=== PATIENT | male | born 1945 | race Caucasian/White ===

== ENCOUNTER 2023-09-22 13:26 | Emergency (ER) | payer BC, SELFPAY ==
[2023-09-22 13:34] VITALS: BP 231/97; PULSE 85; RESP 18; TEMP 36.8; O2SAT 98
--- NOTE | 2023-09-22 13:45 | DI.RAD_ITS ---
Exam(s) XR SHOULDER LT COMPLETE 2+V EXAM: XR SHOULDER LT COMPLETE 2+V CLINICAL HISTORY: left shoulder trauma. TECHNIQUE: 2D digital imaging was performed. Three views. COMPARISON: No exams were available for comparison FINDINGS: There is a fracture through the surgical neck of the humerus with some impaction and mild displacemen t. There is additional nondisplaced fracture through the greater tuberosity. The fracture may be valladares bacute. There are underlying degenerative changes of the glenohumeral joint. Multiple subchondral c ysts is well as sclerosis on both sides of the joint. The AC joint is unremarkable. IMPRESSION: Fracture of the humeral head which appears subacute. Clinical correlation recommended. Underlying s evere degenerative changes. DATA REPOSITORY: RADIATION DOSE DELIVERED:
--- NOTE | 2023-09-22 13:48 | ED.GENADUL_ITS ---
Discharge Plan Disposition Patient Disposition: Home Discharge Details Clinical Impression: Fracture of head of left humerus Primary Care Provider: Unknown,Unknown ED Provider: Anson Morales Home Meds and New Rx's Prescriptions: New oxycodone 5 mg tablet 5 mg PO Q6H PRNQty: 9 0RF No Action losartan 50 mg tablet 50 mg PO DAILY atorvastatin 40 mg tablet 40 mg PO DAILY Discharge Instructions Instructions: Proximal Humerus Fracture (ED) Additional Instructions: You were seen in the emergency department after a fall. We performed an x-ray of your left shoulder that shows a fracture to the left humeral head. We gave you some medications for pain. We put you in a sling. Take 1000 g of Tylenol every 6 hours for pain. Take 600 mg of ibuprofen every 6 hours for pain. I Have given you a prescription for oxycodone that you can take for breakthrough pain as prescribed. Use the sling is much as possible to help with pain take keep the area immobilized. You can apply ice packs for pain additionally. You should follow-up with a orthopedic surgeon within a week for repeat x-rays and reevaluation. We gave you a disc of your x-rays to go home with. You were found to have multiple subchondral cysts as well as sclerosis on both sides of the joint near the fracture which very likely contributed to you having the fracture from this fall. You should let your orthopedic surgeon know about this to make sure there is not a more serious cause of these findings leading to this fracture. Return to the emergency department if you have any other concerns or if you develop any loss of function in the hand or the upper arm. Follow-up with your primary care doctor additionally. Referrals: Primary Care Provider [Outside] - 1 week CIERRA Busby [RN FOR [facility] [place] [facility]] - 1 week Medical Decision Making 78-year-old male presents with left shoulder injury. Likely to represent a muscle strain or tear or rotator cuff injury. We will provide some analgesia for this. We will get plain films to rule out fracture. Otherwise sensation motor and tendon exam is intact so no role for more advanced imaging at this time. No other signs of trauma on examination so no role for other imaging at this time. We will provide some analgesia while awaiting plain films and reevaluate. 240pm X-ray of the left shoulder is showing a left humeral head fracture. Question whether this is subacute according to the radiologist but I think that this is acute based off of the patient's story. Has some chondral cyst that may have contributed to this. Informed patient of these findings. Placed him in a sling and told him to follow-up with an orthopedist within a week. Sent him home with a disc and the radiology read. Told him that this may need surgery but may be treated nonoperatively and that he needs to follow-up with his orthopedic surgeon. Says he is from [place] and has 1 down there that he can follow-up with. Suspect this subchondral cyst may have led this to be a pathologic fracture. Told him to inform the orthopedic surgeon about this finding as well to make sure that this is not related to a bony metastasis or cancer. He expresses understanding. Giving some oxycodone to go. Has a sling. Will discharge with return precautions. Imaging Data Radiologic Study: Attestation: I personally reviewed and interpreted this imaging study as follows: Imaging: X-Ray (left shoulder) Radiologist's impression: FINDINGS: There is a fracture through the surgical neck of the humerus with some impaction and mild displacement. There is additional nondisplaced fracture through the greater tuberosity. The fracture may be subacute. There are underlying degenerative changes of the glenohumeral joint. Multiple subchondral cysts is well as sclerosis on both sides of the joint. The AC joint is unremarkable. IMPRESSION: Fracture of the humeral head which appears subacute. Clinical correlation recommended. Underlying severe degenerative changes. HPI General Mode of arrival: ambulatory . Date/Time Provider Initiated Documentation: 09/22/23 13:43 . Limitations to Documentation: no limitations . Information obtained by: patient . HPI Narrative: 78-year-old male presents after a fall with left shoulder pain. Fell this morning and and on his left shoulder. [place] a pop. Still able to move his arm. Significant pain to the shoulder with range of motion. No numbness tingling or weakness in the upper extremities. Denies any other injury. No hit head or loss of consciousness. Related Data Home Medications Medication Instructions Recorded Confirmed atorvastatin 40 mg tablet 40 mg PO DAILY 09/22/23 09/22/23 losartan 50 mg tablet 50 mg PO DAILY 09/22/23 09/22/23 oxycodone 5 mg tablet 5 mg PO Q6H PRN #9 tabs 09/22/23 Previous Rx's Medication Instructions Recorded oxycodone 5 mg tablet 5 mg PO Q6H PRN #9 tabs 09/22/23 Allergies Allergy/AdvReac Type Severity Reaction Status Date / Time No Known Allergies Allergy Unverified 09/22/23 13:39 General Stated Complaint: Orthopedic HA: 4 Review of Systems Constitutional Constitutional: Denies chills, Denies fever(s) and Denies headache(s) Eyes Eyes: Denies change in vision ENT Ears, Nose, Mouth, and Throat: Denies headache(s) and Denies odynophagia Cardiovascular Cardiovascular: Denies chest pain and Denies dyspnea Respiratory Respiratory: Denies dyspnea Gastrointestinal Gastrointestinal: Denies abdominal pain, Denies diarrhea, Denies nausea, Denies odynophagia and Denies vomiting Genitourinary Genitourinary: Denies dysuria Musculoskeletal Comments: Left shoulder pain Integumentary/Breasts Skin/Breast: Denies changing lesions Neurologic Neurologic: Denies behavioral changes and Denies headache(s) Psychiatric Psychiatric: Denies behavioral changes Endocrine Endocrine: Denies heat intolerance Hematologic/Lymphatic Hematologic/Lymphatic: Denies lymphadenopathy PFSH All Active Problems (Updated 09/22/23 @ 14:36 by Anson Morales MD) Fracture of head of left humerus (Acute) Social History Smoking risk assessment performed?: No Exam Const General: cooperative Nutritional Appearance: average body habitus Orientation: alert, awake and oriented x3 HENMT Head: normal to inspection, no palpable skull fracture, normocephalic and atraumatic Ears: external ears normal Mouth: moist mucous membranes Eyes Pupils: PERRL EOM: EOM intact bilaterally and No nystagmus Neck Neck: full ROM, trachea midline, supple, no midline deformity, nontender and no tracheal deviation Chest Chest: normal inspection of the chest Resp Auscultation: clear to auscultation bilaterally Cardio Rate: regular rate Rhythm: regular rhythm GI Inspection: normal to inspection Palpation: soft, no guarding, not rigid and nontender Back/Spine/Pelvis Back: No no CVA tenderness Thoracic/Lumbar Spine: thoracic and lumbar spine normal to inspection, No thoracic spinal tenderness and No lumbar spinal tenderness Skin General skin exam: no rashes or lesions noted Neuro General: patient alert, patient awake and patient oriented x3 Cranial Nerves: CN's II-XI intact bilaterally, PERRL and no nystagmus Cognition: normal cognition Motor: muscle tone normal throughout and strength 5/5 throughout Sensory Exam: no sensory deficits noted Extrem Other: Pain with range of motion to the left shoulder. Still able to fully range it. No obvious deformity but tender on examination. Sensation and motor intact in the radial, ulnar, and median nerve distribution in the bilateral upper extremities. No other bony tenderness to the bilateral upper extremities. Good peripheral pulses in the upper extremities. No signs of trauma to the lower extremities. Course Vital Signs Vital signs: Vital Signs Temperature 36.8 C 09/22/23 13:34 Pulse 85 09/22/23 13:34 Respiratory Rate 18 09/22/23 13:34 Blood Pressure 231/97 H 09/22/23 13:34 Pulse Oximetry 98 09/22/23 13:34 Temperature 36.8 C 09/22/23 13:34 Temperature Source Skin 09/22/23 13:34 Pulse 85 09/22/23 13:34 Respiratory Rate 18 09/22/23 13:34 Blood Pressure 231/97 H 09/22/23 13:34 Blood Pressure Position Sitting 09/22/23 13:34 Pulse Oximetry 98 09/22/23 13:34 Oxygen Delivery Method Room Air 09/22/23 13:34 Oxygen Flow Rate 0 09/22/23 13:34 Pain Level 5 09/22/23 13:34
[2023-09-22] MEDS: Acetaminophen 500 MG TAB 1000 MG PO (14:20)
[2023-09-22] MEDS: Ibuprofen 600 MG TAB PO (14:20)
--- NOTE | 2023-09-22 15:00 | RT.EKG_ITS ---
APPROVED REPORT Exam: Resting ECG Reason for Exam: Diaphoresis Patient Location: E HR:53 bpm ECG Measurements Heart Rate 53 AXIS UT 245 P -3 QRSd 87 QRS -9 QT 452 T 64 QTc 426 Conclusion Slow sinus arrhythmia...V-rate 45- 63, mean< 60 Prolonged UT interval...UT >220, V-rate 50- 90
[2023-09-22 15:15] VITALS: BP 100/55; PULSE 49; O2SAT 92
[2023-09-22] MEDS: oxyCODONE 5 MG TAB PO (15:35)
[2023-09-22 15:36] VITALS: BP 160/71; PULSE 79; RESP 18
== END 2023-09-22 15:39 | disposition home or self-care (01) ==
PROVIDERS: Emergency Provider Student in an Organized Health Care Education/Training Program
DX: R61 Generalized hyperhidrosis; W19.XXXA Unspecified fall, initial encounter; M25.812 Other specified joint disorders, left shoulder; S42.212A Unspecified displaced fracture of surgical neck of left humerus, initial encounter for closed fracture
CPT/HCPCS: 93005; 99284; 73030; 93010